=== PATIENT | male | born 1985 | race American Indian/Alaskan Native ===

== ENCOUNTER 2016-09-07 15:00 | Emergency (ER) | payer SELFPAY ==
[2016-09-07] MEDS ORDERED: KEPPRA 1,000 MG/NS 0.75% 100ML 1,000 MG/100 ML BAG IV ONE ×2 (15:05→15:40)
[2016-09-07] MEDS ORDERED: NACL 0.9% 1000 ML 1,000 ML IV ONE (17:09)
--- NOTE | 2016-09-07 17:41 | Emergency Department Report ---
ED Seizure HPI - General Chief Complaint: Seizure Stated Complaint: SEIZURE Time Seen by Provider: 09/07/16 17:08 Source: patient, family Mode of arrival: Stretcher Limitations: Other - History of Present Illness Initial Comments: Patient is a 30-year-old male with a history of seizure disorder presenting to the ER status post seizure. Patient reports she was in the birthing room of his when he had 2 seizures witnessed by family. Patient reports he has been noncompliant with his Keppra 750 mg by mouth twice a day and has not had a seizure in years. Pt reports noncompliance for the past few days. Otherwise he reports he has been in his normal health and has no other complaints. Pt denies any head trauma and was sitting in a chair when he had a witnessed seizure by his . Otherwise no fevers, chills, VINES, neck pain, NVD, chest pain, SOB, abd pain, medications changes, drug use, travel, or sick contacts MD Complaint: seizure - Related Data Previous Rx's Medication Instructions Recorded Last Taken Type levETIRAcetam [Keppra TAB] 750 mg PO BID #60 tablet 09/07/16 Unknown Rx Allergies Allergy/AdvReac Type Severity Reaction Status Date / Time No Known Allergies Allergy Verified 09/07/16 15:39 ED Review of Systems ROS: Stated complaint: SEIZURE Other details as noted in HPI Comment: All other systems reviewed and negative ED Past Medical Hx - Past Medical History Previous Medical History?: Yes Hx Seizures: Yes - Surgical History Past Surgical History?: No - Social History Smoking Status: Current Every Day Smoker Substance Use Type: Alcohol, Marijuana - Medications Home Medications: Home Medications Medication Instructions Recorded Confirmed Last Taken Type levETIRAcetam [Keppra TAB] 750 mg PO BID #60 tablet 09/07/16 Unknown Rx ED Physical Exam - General Limitations: Other General appearance: alert, in no apparent distress - Head Head exam: Present: atraumatic, normocephalic - Eye Eye exam: Present: normal appearance - ENT ENT exam: Present: mucous membranes moist, other (abrasion of oral mucosa) - Neck Neck exam: Present: normal inspection - Respiratory Respiratory exam: Present: normal lung sounds bilaterally. Absent: respiratory distress - Cardiovascular Cardiovascular Exam: Present: regular rate, normal rhythm. Absent: systolic murmur, diastolic murmur, rubs, gallop - GI/Abdominal GI/Abdominal exam: Present: soft, normal bowel sounds - Rectal Rectal exam: Present: deferred - Extremities Exam Extremities exam: Present: normal inspection - Back Exam Back exam: Present: normal inspection - Neurological Exam Neurological exam: Present: alert, oriented X3 - Psychiatric Psychiatric exam: Present: normal affect, normal mood - Skin Skin exam: Present: warm, dry, intact, normal color. Absent: rash ED Course Vital Signs 09/07/16 09/07/16 09/07/16 15:15 16:00 16:35 Pulse Rate 81 72 Respiratory 18 18 18 Rate Blood Pressure 105/54 Blood Pressure 98/59 [Left] O2 Sat by Pulse 96 98 100 Oximetry 09/07/16 18:30 Pulse Rate 58 L Respiratory 18 Rate Blood Pressure Blood Pressure 105/60 [Left] O2 Sat by Pulse 98 Oximetry - Reevaluation(s) Reevaluation #1: 09/07/16 19:47 Pt remains seizure free, patient has received 1000mg of keppra, patient also taken one tab of home med keppra 750mg for a total of 1750 today. Pt is on 750mg PO BID. Pt will follow up with neurologist for revision of his meds ED Medical Decision Making - Lab Data Result diagrams: 09/07/16 17:25 09/07/16 17:25 - EKG Data -: EKG Interpreted by Me ([id number]) EKG shows normal: sinus rhythm, axis (normal), intervals (QTc:451ms), ST-T waves ((-)ST changes, no STEMI) Rate: bradycardia (57 bpm) Critical care attestation.: If time is entered above; I have spent that time in minutes in the direct care of this critically ill patient, excluding procedure time. ED Disposition Clinical Impression: Seizure Disposition: DISCHARGED TO HOME OR SELFCARE Is pt being admited?: No Condition: Stable Instructions: Epilepsy (ED) Prescriptions: levETIRAcetam [Keppra TAB] 750 mg PO BID #60 tablet Referrals: PRIMARY CARE, [Primary Care Provider] - 3-5 Days
[2016-09-07 17:46] LABS: Basophils % (Auto) 0.4 % (0.0-1.8); Eosinophils % (Auto) 0.3 % (0.0-4.3); Hematocrit 47.1 % (35.5-45.6); Hemoglobin 16.4 gm/dl (11.8-15.2); Mean Corpuscular HGB Conc 35 % (32-34); Mean Corpuscular Hemoglobin 34 pg (28-32); Mean Corpuscular Volume 99 fl (84-94); Platelet Count 187 K/mm3 (140-440); Red Blood Count 4.75 M/mm3 (3.65-5.03); Red Cell Distribution Width 12.8 % (13.2-15.2); White Blood Count 10.6 K/mm3 (4.5-11.0)
[2016-09-07 17:48] LABS: Urine Drugs of Abuse Note Disclamer
[2016-09-07 18:00] LABS: Bilirubin,Urine NEG (Negative); Blood,Urine NEG (Negative); Ketones,Urine NEG (Negative); Leukocyte Esterase,Urine NEG (Negative); Mucus,Urine FEW /HPF; Nitrite,Urine NEG (Negative); Protein,Urine <15 mg/dL mg/dL (Negative); Urobilinogen,Urine < 2.0 mg/dL (<2.0); WBC,Urine < 1.0 /HPF (0.0-6.0)
[2016-09-07 18:05] LABS: Alanine Aminotransferase 15 units/L (7-56); Albumin 4.6 g/dL (3.9-5); Albumin/Globulin Ratio 1.6 %; Alkaline Phosphatase 50 units/L (35-129); Anion Gap 18 mmol/L; Blood Urea Nitrogen 12 mg/dL (9-20); Calcium 9.4 mg/dL (8.4-10.2); Carbon Dioxide 25 mmol/L (22-30); Chloride 98.2 mmol/L (98-107); Glucose 83 mg/dL (75-100); Potassium 4.5 mmol/L (3.6-5.0); Sodium 137 mmol/L (137-145); Total Protein 7.5 g/dL (6.3-8.2)
[2016-09-07 18:40] VITALS: BP 105/60
== END 2016-09-07 20:05 | disposition home or self-care (01) ==
LOC: ED 15:00
DX: R56.9 Unspecified convulsions (principal); F17.200 Nicotine dependence, unspecified, uncomplicated; F12.10 Cannabis abuse, uncomplicated
CPT/HCPCS: 36415; 80053; 80307; 81001; 85025; 93005; 93010; 96361; 96365; 99284; J1953; J7030

== ENCOUNTER 2017-05-21 13:23 | Emergency (ER) | payer SELFPAY ==
[2017-05-21 15:53] LABS: Hematocrit 47.6 % (35.5-45.6); Hemoglobin 15.8 gm/dl (11.8-15.2); Mean Corpuscular HGB Conc 33 % (32-34); Mean Corpuscular Hemoglobin 34 pg (28-32); Mean Corpuscular Volume 101 fl (84-94); Platelet Count 257 K/mm3 (140-440); Red Cell Distribution Width 12.5 % (13.2-15.2)
[2017-05-21 16:07] LABS: Calcium 9.3 mg/dL (8.4-10.2); Hemolysis Index 15
[2017-05-21 16:28] LABS: BUN/Creatinine Ratio 10; Blood Urea Nitrogen 7 mg/dL (9-20)
--- NOTE | 2017-05-21 21:19 | Emergency Department Report ---
ED ENT HPI - General Chief complaint: Seizure Stated complaint: MOUTH ABSCESS/SEIZURE LAST NIGHT Time Seen by Provider: 05/21/17 20:29 Source: patient Mode of arrival: Ambulatory Limitations: No Limitations - History of Present Illness Initial comments: Patient reports possibly having had a seizure a few days ago, and may have bitten down on the left side of his cheek. He is having trouble opening his mouth fully at this time, he is not post-ictal at this time. He is A0x3. MD complaint: other (difficulty opening his mouth due to an abscess on the left side of his mouth) -: days(s) (3) Location: other (mouth) Severity: moderate Severity scale (0 -10): 5 Quality: other (throbbing) Consistency: constant Improves with: none Worsens with: none Associated Symptoms: other (states he can't take his medicine right now because he can't open his mouth. also reports that eh can't eat at this time.) - Related Data Previous Rx's Medication Instructions Recorded Last Taken Type levETIRAcetam [Keppra TAB] 750 mg PO BID #60 tablet 09/07/16 Unknown Rx Allergies Allergy/AdvReac Type Severity Reaction Status Date / Time No Known Allergies Allergy Verified 09/07/16 15:39 ED Dental HPI - General Chief complaint: Seizure Stated complaint: MOUTH ABSCESS/SEIZURE LAST NIGHT Time Seen by Provider: 05/21/17 20:29 Source: patient Mode of arrival: Ambulatory Limitations: No Limitations - Related Data Previous Rx's Medication Instructions Recorded Last Taken Type levETIRAcetam [Keppra TAB] 750 mg PO BID #60 tablet 09/07/16 Unknown Rx Allergies Allergy/AdvReac Type Severity Reaction Status Date / Time No Known Allergies Allergy Verified 09/07/16 15:39 ED Review of Systems ROS: Stated complaint: MOUTH ABSCESS/SEIZURE LAST NIGHT Other details as noted in HPI Constitutional: see HPI. denies: chills, fever Eyes: denies: eye pain, eye discharge, vision change ENT: as per HPI. denies: ear pain, throat pain Respiratory: denies: cough, shortness of breath, wheezing Cardiovascular: denies: chest pain, palpitations Endocrine: no symptoms reported Gastrointestinal: denies: abdominal pain, nausea, diarrhea Genitourinary: denies: urgency, dysuria Musculoskeletal: denies: back pain, joint swelling, arthralgia Skin: denies: rash, lesions Neurological: denies: headache, weakness, paresthesias Psychiatric: denies: anxiety, depression Hematological/Lymphatic: denies: easy bleeding, easy bruising ED Past Medical Hx - Past Medical History Previous Medical History?: Yes Hx Seizures: Yes - Surgical History Past Surgical History?: No - Social History Smoking Status: Current Every Day Smoker Substance Use Type: Alcohol - Medications Home Medications: Home Medications Medication Instructions Recorded Confirmed Last Taken Type levETIRAcetam [Keppra TAB] 750 mg PO BID #60 tablet 09/07/16 Unknown Rx ED Physical Exam - General Limitations: No Limitations General appearance: alert, in no apparent distress - Head Head exam: Present: atraumatic - Eye Eye exam: Present: normal appearance - ENT ENT exam: Present: other (swelling to the left side of the face, just superior to the mandibular angle. Very tender to palpation.) - Neck Neck exam: Present: tenderness (pain radiating to the Left neck) - Respiratory Respiratory exam: Present: normal lung sounds bilaterally - Cardiovascular Cardiovascular Exam: Present: regular rate, normal rhythm - GI/Abdominal GI/Abdominal exam: Present: soft. Absent: distended, tenderness - Extremities Exam Extremities exam: Present: normal inspection - Back Exam Back exam: Present: normal inspection - Neurological Exam Neurological exam: Present: alert, oriented X3, CN II-XII intact, normal gait - Psychiatric Psychiatric exam: Present: normal affect - Skin Skin exam: Present: warm, dry, intact, normal color ED Course Vital Signs 05/21/17 05/21/17 05/21/17 14:33 23:44 23:51 Temperature 98.9 F 98.8 F Pulse Rate 54 L 58 L Respiratory 16 18 16 Rate Blood Pressure 129/85 Blood Pressure 117/62 [Left] O2 Sat by Pulse 99 99 99 Oximetry - Reevaluation(s) Reevaluation #1: 05/22/17 00:03 Discussed with [facility], will transfer to [place]. Explained to patient. ED Medical Decision Making - Lab Data Result diagrams: 05/21/17 15:35 05/21/17 15:35 Critical care attestation.: If time is entered above; I have spent that time in minutes in the direct care of this critically ill patient, excluding procedure time. ED Disposition Clinical Impression: Mandibular abscess Disposition: [id number]/TX-[id number] ANOTHER TYPE HLTHCARE Is pt being admited?: No Does the pt Need Aspirin: No Condition: Stable Referrals: PRIMARY CARE,MD [Primary Care Provider] - 3-5 Days
[2017-05-21] MEDS ORDERED: TORADOL IV ONE (21:25)
[2017-05-21] MEDS ORDERED: TORADOL ONE (21:27)
--- NOTE | 2017-05-21 21:57 | Cat Scan Report ---
FINAL REPORT PROCEDURE: CT FACIAL BONES W CON TECHNIQUE: Computerized tomography of the facial bones and soft tissues with axial and coronal sections was performed from the cranial aspect of the frontal sinuses to the caudal portion of the mandible following the IV injection of iodinated nonionic contrast. HISTORY: left jaw swelling, rule out large abscess COMPARISON: No prior studies are available for comparison. FINDINGS: No fractures are identified. The last molar in the left side of the mandible appears to be oriented horizontally with a large erosion/cavity. At the root of the molar there is an erosion in the adjacent mandible eroding through the lateral wall of the left side of the mandible into the adjacent soft tissues. In the soft tissues directly lateral to the mandible image 25 series 3 there is a 3.4 centimeter by 1.2 centimeter by 2.2 centimeter hypoechoic collection which I suspect represents an abscess. There is adjacent soft tissue swelling. Subcutaneous edematous changes are seen on the left as well. There is severe erosion of the last molar in the maxilla on the left. There is also severe erosions involving the 2nd to last molar on the right. There is nodular mucosal thickening in the inferior aspect of the right maxillary sinus. A large oval nodular density is present in the floor of the left maxillary sinus suggesting a mucous retention cyst. The paranasal sinuses otherwise appear clear. The parotid glands and the submandibular glands as well as the epiglottis and the parapharyngeal spaces are unremarkable. The prevertebral soft tissues appear normal. The larynx showed no abnormality. IMPRESSION: Advanced/severe dental disease in several locations as described. The last or posterior molar in the left mandible is oriented horizontally and shows a large erosion as well as lucency surrounding the root of the molar eroding through the lateral wall of the mandible into the adjacent soft tissues. I hypoechoic collection is present as described suggesting an abscess. Dental consultation is recommended. Mild paranasal sinus disease as described.
[2017-05-22 00:31] VITALS: BP 112/70
== END 2017-05-22 01:14 | disposition other institution (70) ==
LOC: ED 13:23
DX: M27.2 Inflammatory conditions of jaws (principal); R56.9 Unspecified convulsions
CPT/HCPCS: 36415; 70487; 80048; 85027; 96374; 99285; J1885; Q9967

== ENCOUNTER 2019-04-09 12:33 | Emergency (ER) | payer SELFPAY ==
--- NOTE | 2019-04-09 13:18 | Event Note ---
ED Screening Note Date of service: 04/09/19 Time: 13:14 ED Screening Note: 33 y o male with PMH of seizures presents wiith recurrents seizures since he ran out of his kepra last week states last seizure was monday he has had about 7-8 seizures This initial assessment/diagnostic orders/clinical plan/treatment(s) is/are subject to change based on patients health status, clinical progression and re- assessment by fellow clinical providers in the ED. Further treatment and workup at subsequent clinical providers discretion. Patient/guardian urged not to elope from the ED as their condition may be serious if not clinically assessed and managed. Initial orders include: labs, ua,uds main side eval
[2019-04-09 13:37] LABS: Bacteria,Urine 1+ /HPF (Negative); Bilirubin,Urine NEG (Negative); Blood,Urine NEG (Negative); Color,Urine Amber (Yellow); Mucus,Urine 3+ /HPF
[2019-04-09 13:44] LABS: Amphetamine Screen,Urine PRESUMPTIVE NEGATIVE; Benzodiazepines Screen,Urine PRESUMPTIVE NEGATIVE; Cocaine Screen,Urine PRESUMPTIVE NEGATIVE; Methadone Screen,Urine PRESUMPTIVE NEGATIVE; Opiate Screen,Urine PRESUMPTIVE NEGATIVE
[2019-04-09 13:50] LABS: Basophils % (Auto) 0.4 % (0.0-1.8); Eosinophils % (Auto) 0.2 % (0.0-4.3); Hematocrit 52.6 % (35.5-45.6); Hemoglobin 18.1 gm/dl (11.8-15.2); Lymphocytes # (Auto) 1.7 K/mm3 (1.2-5.4); Lymphocytes % (Auto) 18.7 % (13.4-35.0); Mean Corpuscular HGB Conc 34 % (32-34); Mean Corpuscular Volume 102 fl (84-94); Monocytes # (Auto) 0.6 K/mm3 (0.0-0.8); Monocytes % (Auto) 7.1 % (0.0-7.3); Platelet Count 225 K/mm3 (140-440); Red Blood Count 5.16 M/mm3 (3.65-5.03); Red Cell Distribution Width 13.2 % (13.2-15.2)
[2019-04-09 14:06] LABS: Cannabinoid Screen,Urine PRESUMPTIVE POSITIVE
[2019-04-09 14:11] LABS: BUN/Creatinine Ratio 13; Blood Urea Nitrogen 10 mg/dL (9-20); Calcium 9.6 mg/dL (8.4-10.2); Hemolysis Index 39
--- NOTE | 2019-04-09 14:42 | Emergency Department Report ---
HPI - General Chief Complaint: Medical Clearance Time Seen by Provider: 04/09/19 13:49 - HPI HPI: 33-year-old male presents to the emergency department with the need of a medication refill of his seizure medication, Keppra 750 mg twice ines ly. The patient says that he had two separate seizures, 2 days ago. The seizure occurred while the patient was at a pharmacy and he did not go to a emergency department or see a physician when this occurred. He was given 4 pills of his Keppra by the pharmacist at that time and he has 1 pill left. He did take the medication this morning. He denies any tobacco but will use some occasional marijuana. He complains of a mild headache but otherwise has no other physical complaints at this time. He does not have a primary care physician or neurologist. ED Past Medical Hx - Past Medical History Previous Medical History?: Yes Hx Seizures: Yes - Surgical History Past Surgical History?: No - Social History Smoking Status: Current Some Day Smoker Substance Use Type: Marijuana - Medications Home Medications: Home Medications Medication Instructions Recorded Confirmed Last Taken Type levETIRAcetam [Keppra TAB] 750 mg PO BID #60 tablet 04/09/19 Unknown Rx ED Review of Systems ROS: Stated complaint: SEIZURE Other details as noted in HPI Comment: All other systems reviewed and negative Constitutional: denies: chills, fever Eyes: denies: eye pain, vision change Respiratory: denies: shortness of breath Cardiovascular: denies: chest pain Gastrointestinal: denies: abdominal pain, vomiting Musculoskeletal: denies: back pain, arthralgia Neurological: headache. denies: weakness, numbness, paresthesias Physical Exam - Physical Exam Vital Signs: Vital Signs 04/09/19 13:11 Temperature 97.8 F Pulse Rate 67 Respiratory 20 Rate Blood Pressure 131/82 O2 Sat by Pulse 96 Oximetry Physical Exam: GENERAL: The patient is well-developed well-nourished. HENT: Normocephalic. Atraumatic. Patient has moist mucous membranes. EYES: Extraocular motions are intact. Pupils equal reactive to light bilaterally. No nystagmus. NECK: Supple. Trachea is midline. CHEST/LUNGS: Clear to auscultation. There is no respiratory distress noted. HEART/CARDIOVASCULAR: Regular. There is no tachycardia. There is no murmur. ABDOMEN: There is no abdominal distention. SKIN: Skin is warm and dry. NEURO: The patient is awake, alert, and oriented. The patient is cooperative. The patient has no focal neurologic deficits. Normal speech. Cranial nerves II through XII grossly intact. No facial asymmetry. No pronator drift. MUSCULOSKELETAL: There is no tenderness or deformity. There is no limitation range of motion. There is no evidence of acute injury. ED Course Vital Signs 04/09/19 13:11 Temperature 97.8 F Pulse Rate 67 Respiratory 20 Rate Blood Pressure 131/82 O2 Sat by Pulse 96 Oximetry ED Medical Decision Making - Lab Data Result diagrams: 04/09/19 13:26 04/09/19 13:26 - Medical Decision Making This patient presents to the emergency department essentially for a medication refill. He did have 2 seizures 2 days ago but he was given a few pills of his antiepileptic medication from the pharmacist and has been taking it and therefore has not had any seizures since. He does not have any focal, motor or sensory deficits and his cranial nerves are intact. He is awake, alert and oriented. His labs were unremarkable except for a UDS positive for marijuana. Vital signs within normal limits. Given a prescription refill for his Keppra and some referrals for primary care and neurology. Instructed to return to the emergency Department with any worsening of his symptoms or any acute distress. Critical Care Time: No Critical care attestation.: If time is entered above; I have spent that time in minutes in the direct care of this critically ill patient, excluding procedure time. ED Disposition Clinical Impression: Seizure disorder, Medication refill Disposition: DC-01 TO HOME OR SELFCARE Is pt being admited?: No Condition: Stable Instructions: Recurrent Seizures Adult (ED) Additional Instructions: Please follow-up with a primary care physician in the next few days. I am also giving you a referral for a local neurologist, Dr. Sotelo, to follow up regarding your seizure disorder. Return to the emergency Department with any worsening of your symptoms or any acute distress. Prescriptions: levETIRAcetam [Keppra TAB] 750 mg PO BID #60 tablet Referrals: JAMEY SOTELO MD [Referring] - 3-5 Days [facility] [Outside] - 3-5 Days LIV LOVE MD [Staff Physician] - 3-5 Days Time of Disposition: 14:42
[2019-04-09 14:52] VITALS: BP 114/76
== END 2019-04-09 14:52 | disposition home or self-care (01) ==
LOC: ED 12:33
DX: G40.909 Epilepsy, unspecified, not intractable, without status epilepticus (principal); F17.200 Nicotine dependence, unspecified, uncomplicated; F12.10 Cannabis abuse, uncomplicated; Z79.899 Other long term (current) drug therapy; Z76.0 Encounter for issue of repeat prescription; Z91.010 Allergy to peanuts
CPT/HCPCS: 36415; 80048; 80164; 80307; 80320; 81001; 85025; G0480

== ENCOUNTER 2019-06-08 13:39 | Emergency (ER) | payer SELFPAY ==
[2019-06-08 15:49] VITALS: BP 120/90
--- NOTE | 2019-06-08 15:53 | Emergency Department Report ---
Chief Complaint: Medical Clearance Stated Complaint: MEDICAL CLEARANCE - HPI History of Present Illness: 33 yo male last sz 4 days ago 2 sz a week on average no symptoms now requesting med refil last dose of meds yest am - Exam Physical Exam: lungs cta CV rrr abd soft nontender nondistended neuro: speech clear, no droop, 5/5 upper and lower extremity strength MSE screening note: Focused history and physical exam performed. Due to findings the following was ordered: ED Medical Decision Making - Medical Decision Making no emergent complaint med refill and oupt resources provided ED Disposition for MSE Clinical Impression: Seizure Disposition: Z MED SCREENING EXAM-LEFT Is pt being admited?: No Condition: Stable Instructions: Recurrent Seizures Adult (ED) Prescriptions: levETIRAcetam [Keppra TAB] 750 mg PO BID #60 tablet Referrals: LIV LOVE MD [Staff Physician] - 3-5 Days MAMIE VAZQUEZ MD [Staff Physician] - 3-5 Days Time of Disposition: 15:53
== END 2019-06-08 15:57 | disposition left against medical advice (07) ==
LOC: ED 13:39
DX: R56.9 Unspecified convulsions (principal); Z76.0 Encounter for issue of repeat prescription
CPT/HCPCS: 99282